=== PATIENT | male | born 1935 | race Caucasian/White ===

== ENCOUNTER → 2019-06-25 12:34 | Outpatient (CLI) | payer MEDICARE, OTHER, SELFPAY ==
--- NOTE | 2019-06-25 | DI.US.S_ITS ---
PROCEDURE: US ABDOMEN COMPLETE INDICATIONS: JAUNDICE AND ELEVATED BILIRUBIN TECHNIQUE: Real-time scanning was performed of the abdominal and retroperitoneal organs, with image documentation. COMPARISON: [facility], CT, CHEST HIGH RESOLUTION, 07/05/2010, 10:28. [facility], US, ABD AORTA ANEURYSM SCREENING, 07/17/2011, 10:19. [facility], CT, CHEST HIGH RESOLUTION, 09/03/2013, 11:52. FINDINGS: Liver: Liver is normal in size and homogeneous in echotexture. Gallbladder: The gallbladder appears normal Biliary ducts: Intrahepatic bile ducts are non-dilated. Extrahepatic bile duct caliber measures 3.0 mm. Normal is 6-7 mm or less in diameter, or 10 mm or less post-cholecystectomy. Pancreas: Visualized portions of the pancreas are sonographically normal but much of the pancreas was obscured by bowel gas. Spleen: Spleen is normal in size and homogeneous in echotexture. Kidneys: Kidneys are normal in size and echotexture. Right kidney measures 10.3 cm long; left kidney measures 11.2 cm long. No hydronephrosis or nephrolithiasis. No solid masses. A cystic structure at the lower pole of the right kidney contains internal septations, and measures up to 9.7 x 6.2 x 7.1 cm without mural nodularity or increased enhancement. Aorta: Visualized aorta is normal in caliber at less than 3 cm. Iliacs: Proximal common iliac arteries are normal in caliber at less than 2.5 cm. IVC: Intrahepatic inferior vena cava is patent. Miscellaneous: No free abdominal fluid. IMPRESSION: Currently the liver parenchyma appears normal and no biliary distention is seen either within the liver or along the bile ducts directed towards the pancreas. The pancreas itself is poorly seen due to overlying bowel gas, but no pancreatic ductal distention would be suspected. The findings may represent a manifestation of hepatic insufficiency related to infection or other nonobstructive etiologies. CT scanning may be warranted or more accurate assessment. A cystic structure is relatively large involving the lower pole region of the right kidney, measuring up to 9.7 x 6.2 x 7.1 cm. By appearance with ultrasound this likely is benign, with thin internal septations. If CT is obtained this would be further assessed in detail. Ideally CT scanning if obtained would be performed without and with contrast for this patient. Dictated by: Francis Yun M.D. on 06/25/2019 at 15:24 Approved by: Francis Yun M.D. on 06/25/2019 at 15:30
[2019-06-25 14:11] LABS: Bilirubin Direct 0.1 mg/dL (0.0-0.4); Bilirubin Indirect 3.1 mg/dL (0.0-1.1); Bilirubin Total 3.2 mg/dL (0.2-1.3)
== END ==
PROVIDERS: PCP Internal Medicine; Referring Provider Internal Medicine; Visit Provider Internal Medicine
DX: R17 Unspecified jaundice (principal); E80.6 Other disorders of bilirubin metabolism; N28.1 Cyst of kidney, acquired
CPT/HCPCS: 36415; 76700; 82247; 82248